=== PATIENT | female | born 1960 | race Caucasian/White ===

== ENCOUNTER 2021-01-07 14:03 | Emergency (ER) | payer OTHER ==
[~2021-01-07] VITALS: Ht 162.6 cm; Wt 78.0 kg
[2021-01-07 14:26] LABS: Source, Urine Clean Catch
[2021-01-07 14:30] LABS: Blood, Urine 2+ (Neg); Glucose Qualitative, Urine Neg (Neg); Ketones, Urine Neg (Neg); Leukocyte Esterase, Urine 3+ (Neg); Nitrite, Urine Pos (Neg); Protein, Urine 2+ (Neg); Specific Gravity, Urine 1.015 (1.003-1.022); Urobilinogen, Urine 3+ (Normal)
[2021-01-07 14:38] LABS: Appearance, Urine Cloudy (Clear); Bilirubin, Urine 3+ (Neg); Color, Urine Orange (P-Yellow)
[2021-01-07 14:41] LABS: White Blood Cells, Urine 50-100 /hpf (0-5)
[2021-01-07 14:42] LABS: Bacteria Many /hpf; Squamous Epithelial Cells Few /hpf (Few)
[2021-01-07 14:52] LABS: BASOPHILS ABSOLUTE AUTO 0.02 K/mm3 (0.00-0.23); BASOPHILS PERCENT AUTO 0 % (0-2); EOSINOPHILS ABSOLUTE AUTO 0.06 K/mm3 (0.00-0.68); EOSINOPHILS PERCENT AUTO 1 % (0-6); Hematocrit 41.1 % (33.0-51.0); Hemoglobin 13.8 g/dL (11.5-16.0); IMMATURE GRAN ABSOLUTE AUTO 0.02 K/mm3 (0.00-0.10); IMMATURE GRAN PERCENT AUTO 0 % (0-1); LYMPHOCYTES ABSOLUTE AUTO 1.55 K/mm3 (0.84-5.20); LYMPHOCYTES PERCENT AUTO 21 % (21-46); MONOCYTES PERCENT AUTO 8 % (4-13); Mean Corpuscular HGB Conc 33.6 g/dL (31.5-36.5); Mean Corpuscular Volume 98 fL (80-100); Mean Platelet Volume 11.2 fL (9.1-12.4); NEUTROPHILS ABSOLUTE AUTO 5.31 K/mm3 (1.96-9.15); NEUTROPHILS PERCENT AUTO 70 % (41-73); Platelet Count 135 K/mm3 (150-400); RDW Standard Deviation 43.7 fL (35.1-46.3); Red Blood Cell Count 4.18 M/mm3 (3.80-5.20); White Blood Cell Count 7.56 K/mm3 (4.00-11.30)
[2021-01-07 15:31] LABS: Alanine Aminotransfer (ALT/SGP 49 U/L (12-78); Albumin, Blood 3.7 g/dL (3.4-5.0); Albumin/Globulin Ratio 0.9 (0.8-1.8); Alk Phos 76 U/L (50-136); Anion Gap 4 mmol/L (6-16); Aspartate Aminotrans (AST/SGOT 51 U/L (12-37); Bilirubin, Total 0.6 mg/dL (0.1-1.0); Blood Urea Nitrogen 16 mg/dL (8-24); Bun/Creatinine Ratio 31.2 (12.0-20.0); CO2, Blood 24 mmol/L (21-32); Calcium, Blood 9.2 mg/dL (8.5-10.1); Chloride, Blood 111 mmol/L (98-108); Creatinine, Blood 0.51 mg/dL (0.40-1.00); Globulin, Blood 4.3 g/dL (2.2-4.0); Glomerular Filtration Rate >60 (60-); Glucose, Blood 90 mg/dL (70-99); Potassium, Blood 4.3 mmol/L (3.5-5.5); Sodium, Blood 139 mmol/L (136-145)
[2021-01-07] MEDS ORDERED: CEPH500 PO (16:36)
== END 2021-01-07 17:13 | disposition home or self-care (01) ==
LOC: ER 14:03
PROVIDERS: Emergency Medicine
DX: K76.6 Portal hypertension (principal); I85.00 Esophageal varices without bleeding; I86.4 Gastric varices
CPT/HCPCS: 36415; 74177; 80053; 81001; 83690; 85025; 87077; 87086; 87186; 96374-59; 96375; 99284-25; J2270; J2405; J7030; Q9967

== ENCOUNTER 2021-01-17 10:28 | Day surgery (SDC) | payer OTHER ==
[~2021-01-17] VITALS: Ht 162.6 cm; Wt 77.3 kg
[~2021-01-17 10:28] MED LIST: CEPH500 PO
[2021-01-17] MEDS ORDERED: PANT20 (11:00)
== END 2021-01-17 12:09 | disposition home or self-care (01) ==
LOC: ORSCSDS 10:28
PROVIDERS: Student in an Organized Health Care Education/Training Program
PROC: 0DB68ZX Excision of Stomach, Via Natural or Artificial Opening Endoscopic, Diagnostic (ICD-10-PCS; principal; 2021-01-17 12:00)
DX: K74.60 Unspecified cirrhosis of liver (principal); K31.7 Polyp of stomach and duodenum; K76.6 Portal hypertension; Z79.899 Other long term (current) drug therapy
CPT/HCPCS: J2704

== ENCOUNTER → 2021-01-23 | Outpatient (CLI) | payer OTHER ==
[~2021-01-23] MED LIST changes: +PANT20
== END ==
LOC: LAB SHORT 17:47
DX: R30.9 Painful micturition, unspecified (principal)
CPT/HCPCS: 87077; 87086; 87186

== ENCOUNTER 2021-03-17 06:57 | Day surgery (SDC) | payer OTHER ==
[~2021-03-17] VITALS: Ht 162.6 cm; Wt 77.3 kg
[~2021-03-17 06:57] MED LIST changes: +B COMPLEX FORM0.4 MG PO; +B-121000 MC6 PO; +DOCU100 PO; +HAIR, SKIN AND1 EAC3 PO; +MULTI-VITAMIN1 EAC2 PO; -PANT20; +PANT20 PO
--- NOTE | 2021-03-17 08:17 | NUR ---
Ambulatory in Day Surgery Patient confirms NPO status and agrees with scheduled surgery. Patient reports completing Chlorhexadine shower X2 prior to admission to hospital. History, Chart, Medications and Allergies reviewed before start of procedure. Lungs clear T/O to Auscultation. Surgical site prepped with 2% Chlorhexidine cloth wipe. + VOID.
--- NOTE | 2021-03-17 11:35 | NUR ---
Patient up to Ambulate independently. Gait steady. Discharge instructions reviewed with patient. Patient verbalizes understanding. Copy given to patient to take home. Patient States Post-Procedure ride home has been arranged. Discharged via wheelchair to private car for ride home. PT SHANELLE RETURNED TO PATIENT. GAVE PT TWO PAIN PILLS.
== END 2021-03-17 12:28 | disposition home or self-care (01) ==
LOC: ORSCMMR 06:57 → ORD 08:45 → ORSCMMR 08:45
PROVIDERS: Surgery
PROC: 0YU50JZ Supplement Right Inguinal Region with Synthetic Substitute, Open Approach (ICD-10-PCS; principal; 2021-03-17 08:45)
DX: K40.90 Unilateral inguinal hernia, without obstruction or gangrene, not specified as recurrent (principal); I10 Essential (primary) hypertension; F41.8 Other specified anxiety disorders; Z79.899 Other long term (current) drug therapy
CPT/HCPCS: A9270; C1781; J0690; J1100; J2250; J2405; J2704; J3010; J7120

== ENCOUNTER 2023-02-25 09:15 | Emergency (ER) | payer OTHER ==
[~2023-02-25] VITALS: Ht 162.6 cm; Wt 83.9 kg
[2023-02-25 09:52] LABS: BASOPHILS ABSOLUTE AUTO 0.03 K/mm3 (0.00-0.23); BASOPHILS PERCENT AUTO 1 % (0-2); EOSINOPHILS ABSOLUTE AUTO 0.06 K/mm3 (0.00-0.68); EOSINOPHILS PERCENT AUTO 1 % (0-6); Hematocrit 40.6 % (33.0-51.0); Hemoglobin 13.4 g/dL (11.5-16.0); IMMATURE GRAN ABSOLUTE AUTO 0.02 K/mm3 (0.00-0.10); IMMATURE GRAN PERCENT AUTO 0 % (0-1); LYMPHOCYTES ABSOLUTE AUTO 1.97 K/mm3 (0.84-5.20); LYMPHOCYTES PERCENT AUTO 30 % (21-46); MONOCYTES ABSOLUTE AUTO 0.28 K/mm3 (0.16-1.47); MONOCYTES PERCENT AUTO 4 % (4-13); Mean Corpuscular HGB 32.9 pg (26.0-34.0); Mean Corpuscular Volume 100 fL (80-100); Mean Platelet Volume 11.5 fL (9.1-12.4); NEUTROPHILS ABSOLUTE AUTO 4.24 K/mm3 (1.96-9.15); NEUTROPHILS PERCENT AUTO 64 % (41-73); Platelet Count 110 K/mm3 (150-400); RDW Coefficient Variation 12.1 % (11.7-14.2); Red Blood Cell Count 4.07 M/mm3 (3.80-5.20)
[2023-02-25 10:09] LABS: U Amphetamine Screen Not Detected; U Barbituate Screen Not Detected; U Benzodiazapine Screen Not Detected; U Buprenorphine Screen Not Detected; U Cannabinoids Screen Not Detected; U Cocaine Screen Not Detected; U Methadone Screen Not Detected; U Methamphetamine Screen Not Detected; U Opiates Screen Not Detected; U Oxycodone Screen Not Detected; U Phencyclidine Screen Not Detected; U Propoxyphene Screen Not Detected
[2023-02-25 10:15] LABS: Albumin, Blood 3.8 g/dL (3.4-5.0); Bilirubin, Total 0.3 mg/dL (0.1-1.0); Bun/Creatinine Ratio 19.1 (12.0-20.0); Calcium, Blood 8.6 mg/dL (8.5-10.1); Creatinine, Blood 0.47 mg/dL (0.40-1.00); Globulin, Blood 3.9 g/dL (2.2-4.0); Total Protein, Blood 7.7 g/dL (6.4-8.2)
[2023-02-25 10:46] VITALS: BP 117/88
== END 2023-02-25 10:51 | disposition home or self-care (01) ==
LOC: ER 09:15
PROVIDERS: Emergency Medicine
DX: F10.129 Alcohol abuse with intoxication, unspecified (principal); Z87.891 Personal history of nicotine dependence; Y90.8 Blood alcohol level of 240 mg/100 ml or more
CPT/HCPCS: 80053; 85025; 93005; 93010; G0480

== ENCOUNTER → 2023-08-20 | Outpatient (CLI) | payer OTHER | LOC: LAB 11:00 → LAB SHORT 11:00 | DX: R30.0 Dysuria (principal) | CPT/HCPCS: 87077; 87086; 87186 ==

== ENCOUNTER 2024-04-15 11:13 | Day surgery (SDC) | payer OTHER ==
[~2024-04-15] VITALS: Ht 162.6 cm; Wt 72.9 kg
[~2024-04-15 11:13] MED LIST changes: +Lactated Ringer's 1,000 ML IV ONE; +propofoL 50 ML IV ONE
[2024-04-15] MEDS ORDERED: CYCLOBENZAPRINE5 MG (11:54)
[2024-04-15] MEDS ORDERED: Lactated Ringer's 1,000 ML IV ONE (12:21)
[2024-04-15 13:44] VITALS: BP 104/73
== END 2024-04-15 13:36 | disposition home or self-care (01) ==
LOC: ORSCSDS 11:13
PROVIDERS: Specialist
PROC: 0DJ08ZZ Inspection of Upper Intestinal Tract, Via Natural or Artificial Opening Endoscopic (ICD-10-PCS; principal; 2024-04-15 13:15)
DX: K70.30 Alcoholic cirrhosis of liver without ascites (principal); Z13.810 Encounter for screening for upper gastrointestinal disorder; K21.9 Gastro-esophageal reflux disease without esophagitis; I10 Essential (primary) hypertension; F41.9 Anxiety disorder, unspecified; F32.A Depression, unspecified; Z87.891 Personal history of nicotine dependence; Z79.899 Other long term (current) drug therapy
CPT/HCPCS: J2704; J7120

== ENCOUNTER → 2025-09-29 | Outpatient (CLI) | payer OTHER ==
[~2025-09-29] MED LIST changes: +CYCLOBENZAPRINE5 MG; -Lactated Ringer's 1,000 ML IV ONE; -propofoL 50 ML IV ONE
== END | disposition home or self-care (01) ==
LOC: LAB SHORT 08:00 → LAB 08:00
DX: R30.0 Dysuria (principal)
CPT/HCPCS: 87077; 87086; 87186; 87335